=== PATIENT | female | born 1955 | race African-American/Black ===

== ENCOUNTER 2018-08-24 09:03 | Emergency (ER) | payer BC, MEDICARE ==
[~2018-08-24] VITALS: Ht 152.4 cm; Wt 100.0 kg
[~2018-08-24 09:03] MED LIST: AMLO-511; HYDR-3965; HYDR25TA; INSU100C4 IJ; INSU100V3; LOSA25TA41; LOVA20TA3; METF-444 PO
[2018-08-24] MEDS ORDERED: FURO40 PO (09:16)
[2018-08-24 09:19] LABS: GLUCOSE,POINT OF CARE 93 MG/DL (70-110)
[2018-08-24 10:14] VITALS: BP 128/76
== END 2018-08-24 10:15 | disposition left against medical advice (07) ==
LOC: EMS 09:06
DX: I13.2 Hypertensive heart and chronic kidney disease with heart failure and with stage 5 chronic kidney disease, or end stage renal disease (principal); E11.22 Type 2 diabetes mellitus with diabetic chronic kidney disease; N18.6 End stage renal disease; I50.9 Heart failure, unspecified; E66.01 Morbid (severe) obesity due to excess calories; M79.89 Other specified soft tissue disorders; J45.909 Unspecified asthma, uncomplicated; Z99.2 Dependence on renal dialysis; Z68.41 Body mass index [BMI] 40.0-44.9, adult; Z88.5 Allergy status to narcotic agent; Z91.013 Allergy to seafood; Z79.4 Long term (current) use of insulin; Z79.899 Other long term (current) drug therapy